=== PATIENT | female | born 1985 | race Asian ===

== ENCOUNTER 2017-06-03 16:56 | Emergency (ER) | payer OTHER ==
[~2017-06-03] VITALS: Ht 165.1 cm; Wt 49.9 kg
--- NOTE | 2017-06-03 17:00 | NUR ---
PATIENT TO ED C/O EPIGASTRIC PAIN SINCE YESTERDAY. VSS
[2017-06-03] MEDS ORDERED: ACETAMINOPHEN ES 500 MG TABLET PO ONE (17:30)
[2017-06-03] MEDS ORDERED: ONDANSETRON 4 MG TAB.RAPDIS SL ONE (17:30)
[2017-06-03] MEDS ORDERED: FAMOTIDINE (20 MG) 20 MG TABLET PO ONE (17:30)
[2017-06-03] MEDS ORDERED: MAG HYDROX/AL HYDROX/SIMETH 30 ML UDC PO ONE (17:30)
[2017-06-03] MEDS ORDERED: FAMOTIDINE (20 MG) 20 MG TABLET ONE (17:34)
[2017-06-03] MEDS ORDERED: MAG HYDROX/AL HYDROX/SIMETH 30 ML UDC ONE (17:34)
[2017-06-03] MEDS ORDERED: ONDANSETRON 4 MG TAB.RAPDIS ONE (17:35)
[2017-06-03] MEDS ORDERED: ACETAMINOPHEN ES 500 MG TABLET ONE (17:36)
[2017-06-03 18:11] VITALS: BP 124/80
--- NOTE | 2017-06-03 18:11 | NUR ---
Patient discharged to home in stable condition. Written and verbal after care instructions given. Patient verbalizes understanding of instruction.
== END 2017-06-03 18:12 | disposition home or self-care (01) ==
LOC: ER 16:59
DX: K21.9 Gastro-esophageal reflux disease without esophagitis (principal)
CPT/HCPCS: 99284; A4606; Q0162; Z7610